=== PATIENT | female | born 1950 | race Caucasian/White ===

== ENCOUNTER 2019-06-19 20:22 | Inpatient (IN) | payer MEDICARE, SELFPAY ==
--- NOTE | ~2019-06-19 | XR_ITS ---
EXAMINATION: XR abdomen/kub 1V DATE: 06/22/2019 05:58 INDICATION: Small bowel obstruction TECHNIQUE: A supine view of the abdomen was obtained. COMPARISON: 06/21/2019 FINDINGS: Nasogastric tube coiled in the stomach. Multiple persistent dilated loops of gas-filled small bowel t hroughout the abdomen consistent with persistent bowel obstruction. Small amount of gas and stool sca ttered throughout the colon. Calcified nodule at the right lung base consistent with old granulomatou s disease. Mild lumbar dextroscoliosis with severe spondylosis. IMPRESSION: 1. Persistent small bowel obstruction. Reviewed, dictated and finalized at location A. LOFT WORKER
--- NOTE | ~2019-06-19 | XR_ITS ---
EXAMINATION: XR chest 1V portable INDICATION: Assess PICC position TECHNIQUE: Portable AP chest at 1829 hours COMPARISON: 02/17/2019 FINDINGS: A right upper extremity PICC ends with its tip at the superior cavoatrial junction. A nasog astric tube is in the stomach. The lungs are free of acute opacities. There is no pleural effusion or pneumothorax. The cardiomediastinal silhouette is normal. IMPRESSION: 1. Right upper extremity PICC ending with its tip at the superior cavoatrial junction. Reviewed, dictated and finalized at location A. LINE SUPERINTENDENT IMPRESSION: 1. Right upper extremity PICC ending with its tip at the superior cavoatrial ju nction.
--- NOTE | ~2019-06-19 | XR_ITS ---
EXAMINATION: XR abdomen NG/feed tube rechec DATE: 06/21/2019 13:43 INDICATION: Nasogastric tube repositioning TECHNIQUE: A supine view of the abdomen and lower chest was obtained for evaluation of feeding tube placement. COMPARISON: 06/21/2019 at 8:02 AM FINDINGS: Nasogastric tube has been advanced, now coiled in the body of the stomach. Right upper extremity milo pherally inserted central venous catheter (PICC) tip at the caudal superior vena cava. Persistent di lated loops of small bowel in the abdomen consistent with small bowel obstruction. Calcified nodule a t the right lung base consistent with old granulomatous disease. No pleural effusion or pneumothorax. Cardiomediastinal silhouette is normal. Lumbar dextrorotoscoliosis with moderate spondylosis. IMPRESSION: 1. Nasogastric tube in the stomach. 2. Small bowel obstruction. Reviewed, dictated and finalized at location A. INSTRUCTOR
--- NOTE | ~2019-06-19 | XR_ITS ---
XR abdomen/kub 1V DATE: 06/21/2019 08:05 INDICATION: Constipation. No vomiting. TECHNIQUE: Portable supine AP view on 06/21/2019 at 0802 hours COMPARISON: 06/20/2019 CT abdomen pelvis FINDINGS: There is abnormal gaseous distention of numerous small bowel loops, measuring almost 5 cm m aximal diameter, consistent with distal small bowel obstruction. There is a prominent amount of fecal material in the cecum and ascending colon. No visceromegaly is evident. The psoas shadows are intact. The tip of an NG tube is identified at the very upper margin of the radiograph, apparently within the stomach. There is rotatory dextroscoliosis and degenerative change of the lower thoracic and lumbar spine. IMPRESSION: Distal small bowel obstruction Reviewed, dictated and finalized at Location A. Reviewed, dictated and finalized at location B. CAL ASSISTANT SECRETARY
--- NOTE | ~2019-06-19 | XR_ITS ---
EXAMINATION: XR abdomen/kub 1V DATE: 06/23/2019 06:06 INDICATION: Small bowel obstruction. TECHNIQUE: A supine view of the abdomen on 2 radiographs was obtained. COMPARISON: Abdomen radiographs 06/22/2019, CT abdomen and pelvis 06/20/2019 FINDINGS: There are multiple dilated loops of small bowel. The colon is decompressed. The nasogastric tube tip is in the stomach. There is oral contrast in the stomach. IMPRESSION: 1. Persistently dilated small bowel, consistent with small bowel obstruction. Reviewed, dictated and finalized at location A. CULTURAL ENGINEERING TECHNICIAN
--- NOTE | ~2019-06-19 | CT_ITS ---
EXAMINATION: CT abdomen pelvis w con DATE: 06/20/2019 12:56 INDICATION: Small bowel obstruction. TECHNIQUE: Computed tomography (CT) of the abdomen and pelvis was performed with 100 mL Omnipaque-350 intravenous contrast. Automated exposure control and iterative reconstruction technique were employe d. The dose-length product was 330.14 mGy-cm. COMPARISON: 03/07/2019 FINDINGS: Dependent atelectasis in the left lower lobe and mild discoid atelectasis in the right lower lobe. Ca lcified right lower lobe nodule consistent with old granulomatous disease. Heart size is normal. No p ericardial or pleural effusion. Nasogastric tube coiled in the stomach with distal tip at the fundus. Focal hepatic steatosis at the ligamentum teres. Multiple subcentimeter fluid attenuation hepatic cy sts. Larger, low but slightly higher attenuation and more ill-defined 1.3 cm lesion in segment IVb of the liver with associated more peripheral mild biliary ductal dilation. Layering sludge in the depen dent aspect of mildly distended but otherwise normal-appearing gallbladder which measures up to 4.0 c m in maximal diameter. Spleen, pancreas, bilateral adrenal glands and kidneys are normal. Multiple dilated loops of small bowel with transition point at the terminal ileum which may be relate d to stricture resulting from prior inflammatory change associated with an earlier ruptured acute july endicitis. There is mild wall thickening along the proximal 10 cm segment of decompressed terminal il eum. There is a serpiginous loculated fluid collection measuring approximately 3.8 cm in length and u p to 1.3 cm in maximal diameter position along the posterior margin of the decompressed segment of te rminal ileum. There is an additional separate 1.6 x 1.4 cm rim-enhancing likely fluid collection slig htly more posterior and cephalad positioned posterior to the transition point. There are a few divert icula along the sigmoid colon without focal adjacent from trace stranding to suggest diverticulitis. Diffuse wall thickening of the decompressed bladder to at least in part to decompressed state althoug h the wall thickening appears more prominent cephalad suggesting secondary inflammation related to th e adjacent abscess. The inflammation also abuts the atrophic anteverted uterus. Bilateral adnexa are unremarkable. Mesenteric edema and trace amount of free ascites in the pelvis. No free intraperitonea l gas. Moderate lumbar spondylosis with chronic L5 superior endplate compression fracture. Small angy ons of subcutaneous gas and a few small subcutaneous nodules along the anterior pelvic wall likely si jeremy of subcutaneous injections. There is an indeterminate 1.5 cm soft tissue density nodule with poor ly defined margins position in the left paracolic gutter. No pathologically enlarged abdominal or pel vanesa lymphadenopathy. IMPRESSION: 1. Small bowel obstruction with transition 0.10 cm from the ileocecal valve with mild wall thickening and decompression of the terminal ileum. This could be related to stricture related to prior adjacen t perforated appendicitis. 2. Likely recurrent small abscesses in the right lower quadrant/pelvis measuring 3.8 x 1.3 cm and 1.6 x 1.4 cm. The poor candidates for percutaneous drainage given the small size and location a 3. Indeterminate 1.4 cm poorly defined hypoenhancing lesion with mild more peripheral biliary ductal dilation in segment 4A of liver. Differential includes phlegmon, malignancy (either primary or metast atic) and hemangioma. 4. New indeterminate 1.5 cm soft tissue density nodule with poorly defined margins in the left paraco lic gutter. This similarly could be inflammatory or metastatic in etiology. Reviewed, dictated and finalized at location A. AR TACKER IMPRESSION: 1. Small bowel o
--- NOTE | ~2019-06-19 | XR_ITS ---
EXAMINATION: XR abdomen/kub 1V INDICATION: Nasogastric tube placement TECHNIQUE: Supine view of the abdomen is obtained. COMPARISON: None FINDINGS: The nasogastric tube is in the stomach. The lung bases are clear. Small bowel loops of the upper abdomen are upper limits of normal in caliber. IMPRESSION: 1. Nasogastric tube in the stomach. Reviewed, dictated and finalized at location A. UE TECHNOLOGIST
--- NOTE | ~2019-06-19 | US_ITS ---
EXAMINATION: US venous doppler UE DATE: 06/20/2019 11:19 INDICATION: Follow-up relatively recent left upper extremity venous thrombosis in the left upper limb TECHNIQUE: Grayscale images without and with compression and Doppler images of the left upper extremi ty veins were obtained. COMPARISON: 04/06/2019 FINDINGS: No interval change in noncompressible thrombus in the proximal portion of one of the paired left basi lic veins. The second left basilic vein along with the left internal jugular vein, subclavian vein, a xillary vein, brachial vein, cephalic vein, radial vein, and ulnar vein are patent. IMPRESSION: 1. 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 Reviewed, dictated and finalized at location A. RWRITING CONSULTANT
--- NOTE | ~2019-06-19 | XR_ITS ---
EXAMINATION: XR UGI water soluble w sbs EXAM DATE: 06/22/2019 13:39 INDICATION: Small bowel obstruction. TECHNIQUE: Boiler Maker radiograph was acquired. Limited single contrast water-soluble upper GI examination was performed followed by small bowel series with Omnipaque water solution. Spot images of the termi nal ileum were acquired. The DAP for this procedure was 4.3 Gycm2. FINDINGS: There is no esophageal stricture, diverticulum or mass identified. Gastroesophageal juncti on is normal in appearance. Reflux was demonstrated on the exam, which is common in patients who have nasogastric tube in place. The stomach has a normal appearance without evidence of mass lesion, ulceration or filling defect. T here is normal rugal fold pattern. The duodenum and duodenal sweep are normal in appearance. Severely distended loops of mid small bowel are evident. The 30 minute image demonstrates small amoun t of contrast within normal calibered jejunum. The 1.5 hour image demonstrates slightly more contrast within same loops. 3 hour image demonstrates opacification of same jejunal loops, but with progressi on of contrast which now is visible within several loops of moderately distended small bowel. 5 hour image demonstrates more contrast within these loops and several other loops of small bowel which are severely dilated. Examination was terminated at this time as per ordering surgeon Dr. Winn. IMPRESSION: Small bowel obstruction. Reviewed, dictated and finalized at location A. ECTOR WEIGHTS AND MEASURES IMPRESSION: Small bowel obstruction.
[2019-06-19 18:00] VITALS: BP 104/68; PULSE 84; RESP 18; TEMP 36.8; O2SAT 94; BMI 25.1
--- NOTE | 2019-06-19 18:00 | PC.NURSE ---
This patient, Chichi Omer, was admitted to [facility] Surg Room 311-01. Patient/family oriented to hospital policies and general routines including ID bracelet, bed and alarms, visiting hours, pain management, procedures, bathroom and other care routines, personal items, smoking policy, room service/diet, and visiting hours. Valuables list has been completed. Information on how to activate the Rapid Response Team has been discussed. Patient/Family are encouraged to report perceived risks to care and to ask questions if they do not understand what they are told or what they should do. Pt has Right PICC and left nare NG tube.
[2019-06-19 19:18] LABS: Hematocrit 40.9 % (37.0-47.0); Hemoglobin 13.5 g/dL (12.0-15.0); Mean Corpuscular Volume 90.9 fl (80-100); Mean Platelet Volume 9.9 fl (7.4-10.4); Platelet Count Result 209 k/mm3 (150-375); Red Cell Distribution Width 12.9 % (11.5-14.5)
[2019-06-19 19:30] LABS: Blood Urea Nitrogen 41 mg/dL (7-17); Calcium 8.5 mg/dL (8.4-10.2); Carbon Dioxide 31 mmol/L (22-30); Chloride 91 mmol/L (98-107); Estimated CRCL calculation 59 ml/min; Estimated Glomerular Filt Rate > 60; Glucose 109 mg/dL (65-105); Potassium 4.2 mmol/L (3.4-5.0); Sodium 132 mmol/L (137-145)
--- NOTE | 2019-06-19 20:42 | PM.IMHP ---
H&P: HPI History of Present Illness Chief complaint: small bowel obstruction Narrative: Chichi Omer is a 69 year old female who was a direct admit from [facility]. The patient initially went to [facility] on 06/13/2019. She had been experiencing symptoms of abdominal discomfort and nausea for about 1 week prior to going to [facility]. She has had a Zaiz small-bowel obstruction approximately 4 and half years ago when she had a colon abscess. The patient had been a experiencing some lower abdominal discomfort across her lower abdomen. The pain was increasing so she decided to go to the emergency room for further evaluation. The patient had a colon abscess about 4 and half years ago which resulted in a small bowel obstruction in a required laparoscopic drainage of that: Abscess. Patient also had a ruptured appendix back in 2019 that had abscessed and she had that abscess drained per surgery. Conservative measures were attempted. Her repeat KUB suggested that her small-bowel obstruction was getting better so the NG tube was removed. However yesterday she had increased pain after eating and she had a repeat KUB in it shows that the small-bowel obstruction was getting worse. So the NG tube was placed back in the left ear. Patient is on TPN and has a PICC line. The surgical team had been on boarded [facility] however they feel that patient has failed conservative measures. They feel that she needed to be moved to a higher level of care. Dr. lim the surgeon here at [facility] agrees to accept the patient. Patient was transferred here to [facility] with NG tube and TPN. Patient did have magnesium replacement today for 1.6 magnesium. Patient has been requiring some pain medication for severe pain. She has been using Dilaudid and that seems to control her discomfort. Date of service 06/19/2019 Review of Systems Review of Systems: Narrative: Patient is complaining of having a sore throat from the NG tube however she stated that the Chloraseptic spray did not help her at all. She has minimal discomfort to the lower abdomen. It is nontender. She has been passing gas today. All systems reviewed & are unremarkable except as noted in HPI and below Constitutional: Constitutional: Reports as per HPI, Reports no additional constitutional complaints, Reports fatigue and Reports lethargy Comments: She currently has a DVT to left upper extremity from a PICC line from February and has been on Eliquis but since she has been NPO she has been on Lovenox. Eyes: Eyes: Reports as per HPI and Reports no additional eye complaints ENT: Reports system reviewed and no additional complaints, except as documented and Reports Normal hearing present Cardiovascular: Cardiovascular: Reports no additional cardiovascular complaints Respiratory: Respiratory: Reports no additional respiratory complaints and Reports no additional respiratory complaints Gastrointestinal: Gastrointestinal: Reports as per HPI and Reports no additional gastrointestinal complaints Musculoskeletal: Musculoskeletal: Reports no additional musculoskeletal complaints Integumentary/Breasts: Skin/Breast: Reports system reviewed and no additional complaints, except as docu and Reports as per HPI Neurologic: Reports system reviewed and no additional complaints, except as documented, Reports as per HPI and Reports Normal hearing present Psychiatric: Psychiatric: Reports no additional psychiatric complaints and Reports as per HPI Endocrine: Endocrine: Reports no additional endocrine complaints Hematologic/Lymphatic: Hematologic/Lymphatic: Reports no additional hematologic/lymphatic complaints Allergic/Immunologic: Allergic/Immunologic: Reports no additional allergic/immunologic complaints [facility] Past Medical History Medical History (Updated 06/19/19 @ 21:04 by Batsheva Benitez NP) Cervical cancer Post radiation and chemo. Deep vein thrombosis (DVT
[2019-06-19] MEDS: HYDROMORPHONE HCL 1 MG/ML INJ 0.5 MG IV PUSH ×2 (20:48→23:41)
[2019-06-19] MEDS: ENOXAPARIN 60 MG/0.6 ML SYRINGE SUB-Q (21:40)
[2019-06-19 21:59] LABS: Basophils Percent Auto 0.2 % (0.2-1.2); Eosinophils Absolute Auto 0.1 K/mm3 (0-0.3); Eosinophils Percent Auto 1.1 % (0-4.4); Hematocrit 39.5 % (37.0-47.0); Immature Granulocyte Absolute 0.01 K/mm3 (0.00-0.031); Immature Granulocyte Percent A 0.2 % (0-0.5); Lymphocytes Absolute Auto 0.66 K/mm3 (0.9-3.2); Lymphocytes Percent Auto 15.1 % (18.3-44.2); Mean Corpuscular HGB Conc 32.9 g/dl (32-36); Mean Corpuscular Hemoglobin 29.9 pg (26-34); Mean Corpuscular Volume 90.8 fl (80-100); Mean Platelet Volume 9.8 fl (7.4-10.4); Monocytes Absolute Auto 0.7 K/mm3 (0.1-0.6); Monocytes Percent Auto 16.2 % (2.6-8.5); Neutrophils Absolute Auto 2.9 K/mm3 (1.3-6.7); Neutrophils Percent Auto 67.2 % (45.5-73.1); Platelet Count Result 206 k/mm3 (150-375); Red Blood Count 4.35 M/mm3 (4.2-5.4); Red Cell Distribution Width 12.8 % (11.5-14.5); White Blood Count 4.4 K/mm3 (4.5-10.0)
[2019-06-19 22:00] VITALS: BP 108/44; PULSE 80; RESP 16; TEMP 37.1; O2SAT 94
[2019-06-19 22:11] LABS: Alanine Aminotransferase 13 U/L (4-35); Alkaline Phosphatase 88 U/L (38-126); Aspartate Amino Transferase 18 U/L (14-36); Bilirubin,Total 0.4 mg/dL (0.2-1.3); Blood Urea Nitrogen 41 mg/dL (7-17); Calcium 8.3 mg/dL (8.4-10.2); Carbon Dioxide 32 mmol/L (22-30); Chloride 92 mmol/L (98-107); Estimated CRCL calculation 52 ml/min; Estimated Glomerular Filt Rate > 60; Glucose 102 mg/dL (65-105); Magnesium 3.2 mg/dL (1.6-2.3); Potassium 4.3 mmol/L (3.4-5.0); Sodium 134 mmol/L (137-145)
[2019-06-19] MEDS: AMINO ACIDS 4.25%/D5W/LYTES/CA 2,000 ML 100 ML IV CONT (22:22)
[2019-06-19 22:29] LABS: Transferrin 161 mg/dL (206-381)
[2019-06-20 00:08] LABS: Glucose Point of Care 116 (65-105)
[2019-06-20] MEDS: HYDROMORPHONE HCL 1 MG/ML INJ 0.5 MG IV PUSH ×5 (03:31→21:33)
[2019-06-20 05:36] VITALS: BP 131/45; PULSE 71; RESP 20; TEMP 37; O2SAT 96
[2019-06-20 05:40] LABS: Basophils Percent Auto 0.3 % (0.2-1.2); Eosinophils Absolute Auto 0.1 K/mm3 (0-0.3); Eosinophils Percent Auto 1.6 % (0-4.4); Hemoglobin 12.2 g/dL (12.0-15.0); Immature Granulocyte Absolute 0.01 K/mm3 (0.00-0.031); Immature Granulocyte Percent A 0.3 % (0-0.5); Lymphocytes Absolute Auto 0.61 K/mm3 (0.9-3.2); Lymphocytes Percent Auto 16.4 % (18.3-44.2); Mean Corpuscular Hemoglobin 30.3 pg (26-34); Mean Corpuscular Volume 91.8 fl (80-100); Mean Platelet Volume 10.1 fl (7.4-10.4); Monocytes Absolute Auto 0.7 K/mm3 (0.1-0.6); Monocytes Percent Auto 17.7 % (2.6-8.5); Neutrophils Absolute Auto 2.4 K/mm3 (1.3-6.7); Neutrophils Percent Auto 63.7 % (45.5-73.1); Platelet Count Result 199 k/mm3 (150-375); Red Blood Count 4.03 M/mm3 (4.2-5.4); Red Cell Distribution Width 12.8 % (11.5-14.5); White Blood Count 3.7 K/mm3 (4.5-10.0)
[2019-06-20 05:51] LABS: Alanine Aminotransferase 12 U/L (4-35); Albumin Level 2.8 g/dL (3.5-5.1); Alkaline Phosphatase 87 U/L (38-126); Aspartate Amino Transferase 18 U/L (14-36); Bilirubin,Total 0.5 mg/dL (0.2-1.3); Blood Urea Nitrogen 41 mg/dL (7-17); Calcium 8.3 mg/dL (8.4-10.2); Carbon Dioxide 32 mmol/L (22-30); Chloride 90 mmol/L (98-107); Estimated CRCL calculation 52 ml/min; Estimated Glomerular Filt Rate > 60; Glucose 95 mg/dL (65-105); Magnesium 2.5 mg/dL (1.6-2.3); Phosphorus 4.8 mg/dL (2.5-4.5); Potassium 4.4 mmol/L (3.4-5.0); Sodium 132 mmol/L (137-145)
[2019-06-20 05:52] LABS: INR 1.1
[2019-06-20 05:58] LABS: Transferrin 154 mg/dL (206-381)
--- NOTE | 2019-06-20 09:15 | PM.CNGS ---
Assessment and Plan Assessment and plan (1) SBO (small bowel obstruction): Code(s): K56.609 - Unspecified intestinal obstruction, unspecified as to partial versus complete obstruction Status: Acute Assessment and Plan: The chart from [place] has been reviewed. The patient has evidence of a small bowel obstruction that has failed conservative treatment. I have taken the disc of her images at [place] to be uploaded to our system. We will then be able to review her previous scan. We have ordered a repeat CT scan of the abdomen and pelvis as well today that can then be compared. The patient is a high risk surgical candidate due to her history of pelvic radiation for treatment of cervical and possible uterine cancer. The patient reports that she had both uterine and cervical cancer. We have requested information from [facility] regarding her previous cancer and treatment. At this time, we will continue NG tube decompression, analgesics, bowel rest, and IV fluids. Continue Clinimix for nutrition while NPO. Further plan will be forthcoming after we have evaluated the results of the CT scan and depending on how the patient is progressing. If she does have evidence of a high-grade small bowel obstruction that is not responding to conservative measures, then she will require exploratory surgery. The treatment plan as mentioned above has been discussed with the patient and questions were answered. Thank you for allowing me to evaluate the patient in consultation and we will continue to follow along with you. (2) History of radiation therapy: Code(s): Z92.3 - Personal history of irradiation Status: Acute Assessment and Plan: Significantly increases her risk for surgery. 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 (3) Anticoagulant prescribed: Status: Acute Assessment and Plan: Eliquis held since 06/13/19. Currently on weight-based Lovenox Q12H. (4) HTN (hypertension) with goal to be determined: Code(s): I10 - Essential (primary) hypertension Status: Chronic (5) Deep vein thrombosis (DVT) of left upper extremity: Code(s): I82.622 - Acute embolism and thrombosis of deep veins of left upper extremity Status: Chronic (6) Magnesium deficiency: Code(s): E61.2 - Magnesium deficiency Status: Acute Additional Plan The patient's case and plan of care discussed with Dr. Winn today. History of Present Illness Consult details Consult date: 06/20/19 Reason for consult: other (Persistent small bowel obstruction) Requesting physician: Batsheva Benitez NP Narrative: This is a 69-year-old female with a history of cervical and reported uterine cancer in 2004 treated at [facility] with chemotherapy and pelvic radiation. In 2014 she had a colonoscopy that showed a rectosigmoid stricture with biopsies that showed inflammation and fibrosis but no malignancy. A CT scan was subsequently done and showed a pelvic abscess in August of 2014, and the patient ultimately underwent a diagnostic laparoscopy, drainage of pelvic abscess, and biopsy of abscess wall by Dr. Winn on September 15, 2014 along with laparoscopic adhesiolysis of pelvic cul-de-sac by Dr. Curtis. Abscess cultures showed no organism growth. She had no significant issues following this surgery, until the end of last year. The patient was admitted in February of 2019 to [facility] for an intra-abdominal abscess thought to be attributed to perforated acute appendicitis and partial small-bowel obstruction. The abscess was treated with antibiotics and CT-guided percutaneous drainage and the partial small-bowel obstruction resolved with conservative measures and treatment of the intra-abdominal infection. Since that admission, the patient has had no complaints until about 2 weeks ago. She reports noticing lower abdominal pain and pressure at home for about 1 week. She also cheek
[2019-06-20] MEDS: ENOXAPARIN 60 MG/0.6 ML SYRINGE SUB-Q ×2 (09:22→21:22)
--- NOTE | 2019-06-20 09:57 | PM.IMPN ---
Progress Note: A&P Assessment and Plan (1) SBO (small bowel obstruction): Code(s): K56.609 - Unspecified intestinal obstruction, unspecified as to partial versus complete obstruction Status: Acute Assessment and Plan: Patient feeling about the same from yesterday. Surgery following and appreciate recommendations. Continue with NGT with continuous suction. Will continue with pain medication with the Dilaudid and continue with TPN. Further recommendations per surgery. Will obtain records from Dr. Caban's office for previous Echo that was to assess systolic murmur (2) HTN (hypertension) with goal to be determined: Code(s): I10 - Essential (primary) hypertension Status: Chronic Assessment and Plan: Patient is NPO with NGT. BP 130s sys Hold amlodipine, chlorthalidone, metoprolol due to NPO status Continue PRN hydralazine with parameters Monitor (3) Magnesium deficiency: Code(s): E61.2 - Magnesium deficiency Status: Acute Assessment and Plan: Mag 2.5 today. Monitor, replace as needed (4) Deep vein thrombosis (DVT) of left upper extremity: Code(s): I82.622 - Acute embolism and thrombosis of deep veins of left upper extremity Status: Chronic Assessment and Plan: Thrombosis associated from PICC line from LUE in 02/2019. She was to have repeat US in july Repeat ultrasound of the left upper arm today. Patient had been on Eliquis for treatment, but switched to subcu Lovenox in the acute setting due to NPO status (5) Neuropathy associated with cancer: Code(s): C80.1 - Malignant (primary) neoplasm, unspecified; G63 - Polyneuropathy in diseases classified elsewhere Status: Chronic Assessment and Plan: No acute issues at the moment (6) Hyperlipidemia: Code(s): E78.5 - Hyperlipidemia, unspecified Status: Chronic Assessment and Plan: Hold atorvastatin while NPO Subjective Date/time seen: 06/20/19 09:57 Interval history: PAtient is a 69 yo F with a [place] of thrombosis due [place] [facility] [place] cancer, ruptured appendix among other comorbidities who is here for treatment of SBO. Patient states she feels the same; still having lower abdominal pain particularly with moving. She is passing flatus, but no BMs. She has no N/V since NGT was placed. Otherwise no complaints today. Denies f/c/ns, cp/palpitations, sob/cough, n/v, dysuria, hematuria, cloudy urine, calf pain/swelling. Review of Systems Review of Systems: All systems reviewed & are unremarkable except as noted in HPI and below Exam Narrative: Exam Narrative: Patient is lying in bed in semi-drew's position. NGT is placed in Left nostril to suction Const: General: cooperative, comfortable, no acute distress, well developed and alert Nutritional Appearance: well nourished Orientation/consciousness: patient oriented x3 HENMT: Head: normocephalic and atraumatic General nose exam: Normal nares present (NGT left nostril noted) Face and sinus: face symmetric Mouth: Yes lip normal, Yes tongue normal and Yes moist mucous membranes Teeth and gingiva: fair dentition Throat: posterior oropharynx normal and uvula midline Eyes: General: appearance normal, both eyes and all related structures Sclera: sclerae normal Pupils: Equal, round and reactive pupils present EOM: EOMs intact bilaterally Neck: Neck: trachea midline and supple Resp: Effort & Inspection: normal respiratory effort Auscultation: rhonchi right upper (cleared with cough) Cardio: Rate: regular rate Rhythm: regular rhythm Heart sounds: Murmur heart sound present systolic GI: Inspection: distended GI Palp: No abdominal tenderness and Yes Firmness to palpation p
[2019-06-20] MEDS: FAT EMULSIONS IV 20% 250 ML 20.8 ML IVPB (11:27)
[2019-06-20 11:58] LABS: Glucose Point of Care 85 (65-105)
[2019-06-20 13:45] VITALS: BMI 25.1
[2019-06-20 14:00] VITALS: BP 111/65; PULSE 73; RESP 18; TEMP 36.8; O2SAT 92
--- NOTE | 2019-06-20 14:44 | PCNSR ---
On 06/20/19, the student, Susie Murrell, provided care and completed [facility] documentation on this patient. I have reviewed the student's documentation and agree with the findings.
--- NOTE | 2019-06-20 16:46 | PM.PNGS ---
Progress Note: A&P Assessment and Plan (1) SBO (small bowel obstruction): Code(s): K56.609 - Unspecified intestinal obstruction, unspecified as to partial versus complete obstruction Status: Acute Assessment and Plan: despite the patient having already been treated for nearly a week, I would be very slow to proceed with surgery as her radiation injured bowel would prove to potentially be very hazardous to additional surgery. She is not septic or in severe pain at this time. We will go ahead and recover records from [facility] regarding her treatment of cervical and uterine cancer in 2004. Will continue NG suction and serial exams with plain films of the abdomen. She will continue on Clinimax TPN. I am still hopeful that this may resolve. (2) History of radiation therapy: Code(s): Z92.3 - Personal history of irradiation Status: Acute Assessment and Plan: Please see HPI. Patient has significantly injured rectum and small bowel from radiation therapy in 2004. (3) Pelvic abscess in female: Code(s): N73.9 - Female pelvic inflammatory disease, unspecified Status: Acute Assessment and Plan: Fluid collections described on CT scan. These may be purulent as they were in February or they may just be fluid collections as were found in 2014. Will treat with IV antibiotics for now. No fever chills or leukocytosis in [place] although she did have a low neutrophil count there initially. (4) Deep vein thrombosis (DVT) of left upper extremity: Code(s): I82.622 - Acute embolism and thrombosis of deep veins of left upper extremity Status: Chronic Assessment and Plan: Currently on therapeutic dose of Lovenox. Subjective Subjective Date/Time Seen: 06/20/19 06:46 abdominal pain comes and goes. Mostly in the lower abdomen. Not much change since admission in [place] on the . Review of records from [place] show however that she improved initially and her NG was clamped, she was started on a diet. Then, about 5 days later, she was having more problems and the NG was resume to suction. We were then notified that they wished to transfer her here yesterday afternoon. White blood cell count has not been elevated and was in fact low during most of the admission in [place]. No contrast studies were done although a CT scan of the abdomen and pelvis was done on the 13 of June, the admission day. Patient has a significant past history in that she had chemotherapy and radiation therapy at [facility] in 2004 for uterine and cervical cancer. No hysterectomy was done. In our records, in , Dr. Salinas did a colonoscopy. Rather this was an attempted colonoscopy as there was a tight stricture in the upper rectum that he was concerned was a malignancy at the time of the procedure. However, biopsies showed this to be only scar tissue (lamina propria fibrosis). Likely, this is sequellae of her radiation therapy. The patient had a CT scan of the abdomen and pelvis regarding this abnormal rectal mass 2 days after her colonoscopy. Findings described a pelvic abscess situated between the rectum in uterus thought to be due to perforated diverticuli or perforated tumor. Despite these rather ominous findings on CT, the patient was clinically quite stable with no signs of infection only some chronic pelvic discomfort. She was treated with oral antibiotics and her symptoms largely resolved. Her CT was repeated 2 weeks later and showed no change in the pelvic fluid collection. I was involved in her care at this time. It was felt to represent an apparently walled off anterior rectal abscess with perforation into the space between the rectum an uterus. Malignant rectal mass could not be excluded and diverticular abscess was suggested. The patient was taken to surgery and laparoscopic drainage of this pelvic fluid collection was performed. Dr. Curtis and I did the procedur
[2019-06-20] MEDS: AMINO ACIDS 4.25%/D5W/LYTES/CA 2,000 ML 100 ML IV CONT (17:54)
[2019-06-20 18:08] LABS: Glucose Point of Care 98 (65-105)
[2019-06-20 21:09] LABS: Triglycerides 165 mg/dL (<150)
[2019-06-20] MEDS: PANTOPRAZOLE SODIUM IV 40 MG VIAL IV PUSH (21:22)
[2019-06-20 22:00] VITALS: BP 108/52; PULSE 84; RESP 16; TEMP 36.8; O2SAT 98
[2019-06-20 23:30] LABS: Glucose Point of Care 92 (65-105)
[2019-06-21] MEDS: HYDROMORPHONE HCL 1 MG/ML INJ 0.5 MG IV PUSH ×6 (02:08→21:48)
[2019-06-21 05:20] LABS: Glucose Point of Care 100 (65-105)
[2019-06-21 05:22] LABS: Basophils Percent Auto 0.3 % (0.2-1.2); Eosinophils Percent Auto 1.1 % (0-4.4); Hematocrit 37.1 % (37.0-47.0); Hemoglobin 12.3 g/dL (12.0-15.0); Immature Granulocyte Absolute 0.02 K/mm3 (0.00-0.031); Immature Granulocyte Percent A 0.5 % (0-0.5); Lymphocytes Absolute Auto 0.64 K/mm3 (0.9-3.2); Lymphocytes Percent Auto 17.3 % (18.3-44.2); Mean Corpuscular HGB Conc 33.2 g/dl (32-36); Mean Corpuscular Hemoglobin 30.1 pg (26-34); Mean Corpuscular Volume 90.9 fl (80-100); Mean Platelet Volume 9.9 fl (7.4-10.4); Monocytes Absolute Auto 0.7 K/mm3 (0.1-0.6); Monocytes Percent Auto 17.8 % (2.6-8.5); Neutrophils Absolute Auto 2.3 K/mm3 (1.3-6.7); Platelet Count Result 204 k/mm3 (150-375); Red Blood Count 4.08 M/mm3 (4.2-5.4); Red Cell Distribution Width 12.8 % (11.5-14.5); White Blood Count 3.7 K/mm3 (4.5-10.0)
[2019-06-21 05:51] LABS: Blood Urea Nitrogen 38 mg/dL (7-17); Calcium 8.5 mg/dL (8.4-10.2); Carbon Dioxide 31 mmol/L (22-30); Chloride 91 mmol/L (98-107); Estimated CRCL calculation 46 ml/min; Estimated Glomerular Filt Rate > 60; Glucose 109 mg/dL (65-105); Magnesium 1.9 mg/dL (1.6-2.3); Phosphorus 4.8 mg/dL (2.5-4.5); Potassium 4.4 mmol/L (3.4-5.0); Sodium 130 mmol/L (137-145)
[2019-06-21 06:00] VITALS: BP 116/60; PULSE 72; RESP 16; TEMP 36.4; O2SAT 92
[2019-06-21] MEDS: PANTOPRAZOLE SODIUM IV 40 MG VIAL IV PUSH ×2 (08:15→21:48)
[2019-06-21] MEDS: ENOXAPARIN 60 MG/0.6 ML SYRINGE SUB-Q ×2 (08:16→21:48)
--- NOTE | 2019-06-21 09:07 | PM.PNGS ---
Progress Note: A&P Assessment and Plan (1) SBO (small bowel obstruction): Code(s): K56.609 - Unspecified intestinal obstruction, unspecified as to partial versus complete obstruction Status: Acute Assessment and Plan: CT scan and x-ray this morning reviewed and show persistent small-bowel obstruction, although she has now had 2 bowel movements. She seems to be clinically improving some. As previously mentioned, with her history of significant pelvic radiation, she is at a very high risk for additional abdominal surgery. We will continue NG tube decompression, bowel rest, and analgesics today. Repeat KUB in the morning. May consider Gastrografin small-bowel follow-through in the next 1-2 days. Continue Clinimix for nutrition. (2) History of radiation therapy: Code(s): Z92.3 - Personal history of irradiation Status: Acute Assessment and Plan: Patient has significantly injured rectum and small bowel from radiation therapy in 2004. We did receive the records from [place] regarding the patient's previous cancer treatment. It appears she was diagnosed with stage IIB cervical carcinoma. 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 She underwent both chemotherapy and radiation treatment. Last follow-up note received from [place] was in 2007 and showed a PET scan reviewed by the Oncologist with no evidence of local recurrent or metastatic disease with recommendation of follow-up in 1 year for repeat whole body PET/CT scan. (3) Pelvic abscess in female: Code(s): N73.9 - Female pelvic inflammatory disease, unspecified Status: Acute Assessment and Plan: Fluid collections described on CT scan that are not amenable for percutaneous drainage. These may be purulent as they were in February or they may just be fluid collections as were found in 2014. She is afebrile and without leukocytosis. Will continue IV antibiotics. (4) Hyponatremia: Code(s): E87.1 - Hypo-osmolality and hyponatremia Status: Acute Assessment and Plan: Sodium 130 today. The only IV fluids running is her Clinimix 4.25%/5 solution at 100 mL/hr and lipids. I asked the Campaign Associate to give recommendations for the central line solution of Clinimix to reduce the mL/hr rate with the same daily caloric intake. We will then be able to add additional sodium containing fluids without fluid overloading her. Discussed also with the Hospitalist who will order a urine sodium. Continue to trend labs. (5) Deep vein thrombosis (DVT) of left upper extremity: Code(s): I82.622 - Acute embolism and thrombosis of deep veins of left upper extremity Status: Chronic Assessment and Plan: Currently on therapeutic dose of Lovenox. Additional Plan The patient's case and plan of care discussed with Dr. Winn today. Subjective Subjective Date/Time Seen: 06/21/19 09:00 Patient reports: no new complaints, feels better, still having pain, flatus and no bowel movement Interval history: Patient seen and examined. Reports having intermittent lower abdominal pain with certain movements, but denies this being a constant pain. Still feels bloated today. Denies nausea. Reports having a bowel movement last night and again this morning. No other complaints at this time. Review of Systems Review of Systems: All systems reviewed & are unremarkable except as noted in HPI and below Exam Const: General: comfortable, no acute distress, alert and awake GI: Inspection: other ( Only mild distension) GI Palp: No abdominal tenderness, Yes Firmness to palpation present (GI) (Mostly in the lower abdomen), No Guarding due to palpation present (GI), No Hernia present and No Rebound tenderness present Auscultation: Hypoactive bowel sounds present Rectal Exam: deferred Extrem: General: normal to inspection Psych: Mental Status: mental status grossly normal Affect: normal affect
[2019-06-21] MEDS: ONDANSETRON INJ 4 MG/2 ML VIAL IV PUSH (11:18)
--- NOTE | 2019-06-21 11:19 | PCDIET ---
Recommend for PN formula Clinimix E 5/15 at goal rate 60ml/hr Q24 and 250ml of 20% lipid emulsions at 20.833mls/hr Q24. Providing 1522kcals and 72g pro with 24hr volume of 1690.
[2019-06-21] MEDS: FAT EMULSIONS IV 20% 250 ML 20.8 ML IVPB (12:45)
[2019-06-21 13:32] LABS: Sodium Urine Random 34 meq/L
[2019-06-21] MEDS: SODIUM CHLORIDE 0.9% IV 1,000 ML 50 ML IV CONT (13:35)
[2019-06-21 13:51] LABS: Glucose Point of Care 135 (65-105)
[2019-06-21 14:00] VITALS: BP 111/76; PULSE 84; RESP 18; TEMP 36.3; O2SAT 95
--- NOTE | 2019-06-21 15:01 | PCDIET ---
Nutrition Follow-Up Complete: Altered GI function related to small bowel obstruction as evidence by present abdominal pain and nausea. Toleration of TPN formula and reach goal rate. Goal met. Noted that formula and rate changed 06/21 Nutrition recommendation: NPO with PN appropriate. Clinimix E 5/15 at 60mls/hr Q24 with 250mls 20%lipid emulsion at 20.833ml/hr q24, providing 1522kcals and 72g pro. Recommend continuation until medically appropriate for diet advancement. Last recorded weight is 63.5 kg. Bowel Motility: +BM 06/21 Labs Reviewed:Na(130), K(4.4), Glu(109), TGs(165.38), PO4(4.8) Meds Noted: protonix, lovenox, zofran Additional Notes: Pt states abdominal pain is present but has not worsened. [place] slightly nauseous today but it only lasted for a short period of time. Will continue to monitor labs. Follow up T/F
--- NOTE | 2019-06-21 15:14 | PCNSR ---
On 06/21/19, the student, Suise Murrell, provided care and completed [facility] documentation on this patient. I have reviewed the student's documentation and agree with the findings.
[2019-06-21 18:17] LABS: Glucose Point of Care 114 (65-105)
--- NOTE | 2019-06-21 19:34 | PM.IMPN ---
Progress Note: A&P Assessment and Plan (1) SBO (small bowel obstruction): Code(s): K56.609 - Unspecified intestinal obstruction, unspecified as to partial versus complete obstruction Status: Acute Assessment and Plan: ------Patient feeling about the same from yesterday and has had gas and a very small amount of stool. Xray still showing bowel obstruction.. Surgery following and appreciate recommendations. She is on TPN and fluids were added today d/t hyponatremia. Dr. Caban does not have records of echo, she says her pcp nupur burns ordered it and reports no significant abnormalities or symptoms of . (2) HTN (hypertension) with goal to be determined: Code(s): I10 - Essential (primary) hypertension Status: Chronic Assessment and Plan: -----Patient is NPO with NGT. Last bp 111/76. Hold amlodipine, chlorthalidone, metoprolol due to NPO status. Continue PRN hydralazine with parameters (3) Magnesium deficiency: Code(s): E61.2 - Magnesium deficiency Status: Acute Assessment and Plan: -----Improved (4) Deep vein thrombosis (DVT) of left upper extremity: Code(s): I82.622 - Acute embolism and thrombosis of deep veins of left upper extremity Status: Chronic Assessment and Plan: ------Thrombosis associated from PICC line from LUE in 02/2019. She was to have repeat US in july. Repeat ultrasound of the left upper arm today. 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 imaging worrisome for reoccurrence. Will need follow up with oncologist. I will talk to her tomorrow about more specifics. (6) Hyperlipidemia: Code(s): E78.5 - Hyperlipidemia, unspecified Status: Chronic Assessment and Plan: -------Hold atorvastatin while NPO Subjective Date/time seen: 06/21/19 19:34 Interval history: Pt is a 69 yo here for SBO w/ a history of thrombosis due to PICC line, and cervical cancer. The patients states she has passed some gas and had a very small smear bowel movement and is feeling better. She occasionally gets nausea and pain to the lower quadrants but no vomiting. She had to get her NG tube adjusted which has made this all worse. She denies CP, SOB, fevers, chills, or leg swelling. Pt states she had an echo last year with her doctor, Nupur burns in [place] because of the murmur that was found and she was told it wasn't an issues and they will monitor her. . Exam Narrative: Exam Narrative: General: Well developed well nourished patient resting in bed in NAD HEENT: normocephalic, NG intact Neck: supple Neuro: Alert and oriented x 4 CV:RRR with 2/6 systolic murmur best heard on the right ICS Resp:CTA, some occasional expiratory wheeze Abd: Soft, non distended. Some mild pain to the lower abdomen. Positive bowel sounds Extremities: No swelling, erythema, or pain to palpation. Objective Data Vital Signs Vital Signs: Vital Signs - 24 hr 06/20/19 22:00 06/21/19 06:00 06/21/19 14:00 Temperature 98.2 F 97.5 F L 97.3 F L Pulse Rate 84 72 84 Respiratory Rate 16 16 18 Blood Pressure 108/52 L 116/60 111/76 Pulse Oximetry 98 92 95 Intake/Output Intake/Output: Intake & Output 06/18/19 06/19/19 06/20/19 06/21/19 23:59 23:59 23:59 23:59 Intake Total 2250 2611 Output Total 1450 1850 Balance 800 761 Meds/Results Medications: Active Medications Generic Name Dose Route Start Last Admin Trade Name Freq PRN Reason Stop Dose Admin Enoxaparin Sodium 60 mg 06/20/19 09:00 06/21/19 08:16 Lovenox SUB-Q 60 mg Q12HR SARAH Administration Hydralazine HCl 10 mg 06/19/19 20:25
[2019-06-21 22:00] VITALS: BP 120/56; PULSE 85; RESP 16; TEMP 37; O2SAT 95
[2019-06-22] MEDS: LIDOCAINE/PRILOCAINE 2.5-2.5% KIT 1 EACH TOPICAL ×3 (00:06→21:07)
[2019-06-22] MEDS: HYDROMORPHONE HCL 1 MG/ML INJ 0.5 MG IV PUSH ×7 (00:08→22:55)
[2019-06-22 00:15] LABS: Glucose Point of Care 147 (65-105)
[2019-06-22 05:23] LABS: Glucose Point of Care 111 (65-105)
[2019-06-22 05:23] LABS: Glucose Point of Care > 500 (65-105)
[2019-06-22 06:00] VITALS: BP 100/57; PULSE 89; RESP 16; TEMP 36.6; O2SAT 94
--- NOTE | 2019-06-22 07:26 | PM.PNGS ---
Progress Note: A&P Assessment and Plan (1) SBO (small bowel obstruction): Code(s): K56.609 - Unspecified intestinal obstruction, unspecified as to partial versus complete obstruction Status: Acute Assessment and Plan: making a little bit of progress each day. Will get Gastrografin upper GI small-bowel follow-through. Even if it does not pass through, it may work to facilitate resolution of the small-bowel obstruction as the patient is extremely high risk surgically. (2) History of radiation therapy: Code(s): Z92.3 - Personal history of irradiation Status: Acute Assessment and Plan: Rectal stricture and previous small-bowel fibrosis, abscesses. (3) Deep vein thrombosis (DVT) of left upper extremity: Code(s): I82.622 - Acute embolism and thrombosis of deep veins of left upper extremity Status: Chronic Assessment and Plan: On Lovenox therapeutic dose. (4) Hyponatremia: Code(s): E87.1 - Hypo-osmolality and hyponatremia Status: Acute Assessment and Plan: Clinimix changed to central formulation. No electrolytes have been done as yet today. Subjective Subjective Date/Time Seen: 06/22/19 07:26 Abdominal and pelvic pain seems to be less intense and less frequent. Slept better last night. Passing gas but no BM since yesterday. Overall feels better. Review of Systems Review of Systems: All systems reviewed & are unremarkable except as noted in HPI and below Constitutional: Constitutional: Denies headache(s) ENT: Denies headache(s) Cardiovascular: Cardiovascular: Denies chest pain and Denies dyspnea Respiratory: Respiratory: Denies cough and Denies dyspnea Gastrointestinal: Gastrointestinal: Reports as per HPI Neurologic: Denies confusion and Denies headache(s) Psychiatric: Psychiatric: Denies confusion Exam Const: General: comfortable and no acute distress; No confusion Orientation/consciousness: patient oriented x3 and No confusion Resp: Effort & Inspection: normal respiratory effort Auscultation: clear to auscultation bilaterally Cardio: Rate: regular rate Rhythm: regular rhythm GI: Inspection: normal to inspection and non-distended GI Palp: Yes Soft to palpation, No Guarding due to palpation present (GI) and No Rebound tenderness present Auscultation: normal bowel sounds Neuro: General: patient oriented x3, no focal motor deficits and No confusion Extrem: General: no calf tenderness and no edema Psych: Affect: normal affect Insight: Good insight present (Psych) Judgement: Good judgement present (Psych) Objective Data Vital Signs Vital Signs: Vital Signs - 24 hr 06/21/19 14:00 06/21/19 22:00 Temperature 36.3 C L 37.0 C Pulse Rate 84 85 Respiratory Rate 18 16 Blood Pressure 111/76 120/56 L Pulse Oximetry 95 95 Intake/Output Intake/Output: Intake & Output 06/19/19 06/20/19 06/21/19 06/22/19 23:59 23:59 23:59 23:59 Intake Total 2250 2611 1530 Output Total 1450 1850 300 Balance 860 172 4434 Meds/Results Medications: Active Medications Generic Name Dose Route Start Last Admin Trade Name Freq PRN Reason Stop Dose Admin Enoxaparin Sodium 60 mg 06/20/19 09:00 06/21/19 21:48 Lovenox SUB-Q 60 mg Q12HR SARAH Administration Hydralazine HCl 10 mg 06/19/19 20:25 Apresoline Hcl Inj IV PUSH Q8H PRN Blood Pressure - High Hydromorphone HCl 0.5 mg 06/19/19 20:41 06/22/19 04:41 Dilaudid Inj IV PUSH 0.5 mg Q3H PRN Administration Pain Rated 7-10 Dextrose 1,000 mls @ 50 mls/hr 06/19/19 20:40 Dextrose 10% IV CONT .Q20H PRN if PN is interrupted Fat Emulsion Intravenous 250 mls @ 20.833 mls/hr 06/20/19 12:00 06/22/19 01:14 Lipids 20% IVPB Infused Q24H SARAH Infusion Piperacillin/Tazobactam/Dextrose 3.375 gm in 50 mls @ 100 mls/hr 06/21/19 07:00 06/22/19 05:40 Zosyn 3.375 Gm/D5w 50ml Pm IVPB Infused Q6HR SARAH Infusion Multivitamin
[2019-06-22] MEDS: ONDANSETRON INJ 4 MG/2 ML VIAL IV PUSH ×2 (09:33→16:24)
[2019-06-22 09:37] VITALS: BP 108/65; PULSE 82; RESP 14; TEMP 37; O2SAT 93
[2019-06-22] MEDS: ENOXAPARIN 60 MG/0.6 ML SYRINGE SUB-Q ×2 (09:52→21:08)
[2019-06-22] MEDS: PANTOPRAZOLE SODIUM IV 40 MG VIAL IV PUSH ×2 (10:06→21:09)
[2019-06-22 10:24] LABS: Blood Urea Nitrogen 34 mg/dL (7-17); Calcium 8.6 mg/dL (8.4-10.2); Carbon Dioxide 31 mmol/L (22-30); Chloride 91 mmol/L (98-107); Estimated CRCL calculation 41 ml/min; Estimated Glomerular Filt Rate > 60; Glucose 112 mg/dL (65-105); Phosphorus 4.3 mg/dL (2.5-4.5); Potassium 4.1 mmol/L (3.4-5.0); Sodium 134 mmol/L (137-145)
[2019-06-22] MEDS: SODIUM CHLORIDE 0.9% IV 1,000 ML 50 ML IV CONT (11:02)
[2019-06-22] MEDS: FAT EMULSIONS IV 20% 250 ML 20.8 ML IVPB (11:48)
[2019-06-22 11:51] LABS: Glucose Point of Care 103 (65-105)
[2019-06-22 14:07] VITALS: BP 117/59; PULSE 87; RESP 12; TEMP 37; O2SAT 93
--- NOTE | 2019-06-22 14:27 | PC.NURSE ---
On 06/22/19, the student, [Мария Johansen ], provided care and completed [facility] documentation on this patient. I have reviewed the student's documentation and agree with the findings.
--- NOTE | 2019-06-22 16:27 | PM.IMPN ---
Progress Note: A&P Assessment and Plan (1) SBO (small bowel obstruction): Code(s): K56.609 - Unspecified intestinal obstruction, unspecified as to partial versus complete obstruction Status: Acute Assessment and Plan: ------Patient feeling about the same as she has been and has been passing gas. Xray still showing bowel obstruction. I spoke with Dr. lim who may see if she could be transferred to a tertiary care center since she will be a high risk surgery. Hyponatremia has resolved. Dr. Caban does not have records of echo, she says her pcp nupur burns ordered it and reports no significant abnormalities or symptoms of . (2) HTN (hypertension) with goal to be determined: Code(s): I10 - Essential (primary) hypertension Status: Chronic Assessment and Plan: -----Patient is NPO with NGT. Last bp 117/59. Hold amlodipine, chlorthalidone, metoprolol due to NPO status. Continue PRN hydralazine with parameters (3) Magnesium deficiency: Code(s): E61.2 - Magnesium deficiency Status: Acute Assessment and Plan: -----Improved (4) Deep vein thrombosis (DVT) of left upper extremity: Code(s): I82.622 - Acute embolism and thrombosis of deep veins of left upper extremity Status: Chronic Assessment and Plan: ------Thrombosis associated from PICC line from LUE in 02/2019. She was to have repeat US in july. Repeat ultrasound of the left upper arm today. 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 (6) Hyperlipidemia: Code(s): E78.5 - Hyperlipidemia, unspecified Status: Chronic Assessment and Plan: -------Hold atorvastatin while NPO (7) Abnormal computed tomography angiography (CTA) of abdomen and pelvis: Code(s): R93.5 - Abnormal findings on diagnostic imaging of other abdominal regions, including retroperitoneum Status: Acute Assessment and Plan: -----will need follow-up once this acute illness has improved. Spoke with the radiologist and surgeon about potential biopsy sites but since the patient did not tolerate the Gastrografin test, will hold off on this workup. I will draw his CA-125 and give her referrals. Subjective Date/time seen: 06/22/19 16:27 Interval history: Pt is a 69 yo here for SBO w/ a history of cervical cancer. The patient was seen today and states that she has not had a ton of improvement. She has been passing some gas but she still has intermittent abdominal pain. She has not had any nausea but just started her small-bowel study. She states that her oncologist does not practice anymore and that she has not seen another oncologist since. We talked about the CT abnormalities and what they could be. I asked if she would like to see 1 of our oncologists after this acute illness has improved and she said she will think on it. She has not had a bowel movement. Pt denies nausea, vomiting, fevers, chills, chest pain, or shortness of breath Exam Narrative: Exam Narrative: General: Well developed well nourished patient resting in bed in NAD HEENT: normocephalic, NG intact Neck: supple Neuro: Alert and oriented x 4 CV:RRR with 2/6 systolic murmur best heard on the right ICS Resp:CTA, some occasional expiratory wheeze Abd: Soft, non distended. Some mild pain to the lower abdomen. Positive bowel sounds again today Extremities: No swelling, erythema, or pain to palpation. Objective Data Vital Signs Vital Signs: Vital Signs - 24 hr 06/21/19 22:00 06/22/19 06:00 06/22/19 09:37 Temperature 98.6 F 97.9 F 98.6 F Pulse Rate 85 89 82 Respiratory Rate 16 16 14 B
[2019-06-22 18:54] LABS: Glucose Point of Care 136 (65-105)
[2019-06-22 22:00] VITALS: BP 131/73; PULSE 83; RESP 14; TEMP 36.7; O2SAT 94
[2019-06-22 22:04] LABS: Triglycerides 126 mg/dL (<150)
[2019-06-22 23:34] LABS: Glucose Point of Care 126 (65-105)
[2019-06-23] MEDS: ONDANSETRON INJ 4 MG/2 ML VIAL IV PUSH ×3 (02:33→16:09)
[2019-06-23] MEDS: HYDROMORPHONE HCL 1 MG/ML INJ 0.5 MG IV PUSH ×5 (02:59→18:06)
[2019-06-23 05:33] LABS: Glucose Point of Care 154 (65-105)
[2019-06-23 05:38] LABS: Basophils Percent Auto 0.2 % (0.2-1.2); Eosinophils Percent Auto 0.6 % (0-4.4); Hematocrit 38.3 % (37.0-47.0); Hemoglobin 12.4 g/dL (12.0-15.0); Immature Granulocyte Absolute 0.04 K/mm3 (0.00-0.031); Immature Granulocyte Percent A 0.6 % (0-0.5); Lymphocytes Absolute Auto 0.52 K/mm3 (0.9-3.2); Lymphocytes Percent Auto 7.9 % (18.3-44.2); Mean Corpuscular HGB Conc 32.4 g/dl (32-36); Mean Corpuscular Hemoglobin 29.7 pg (26-34); Mean Corpuscular Volume 91.6 fl (80-100); Mean Platelet Volume 9.9 fl (7.4-10.4); Monocytes Absolute Auto 0.7 K/mm3 (0.1-0.6); Neutrophils Absolute Auto 5.3 K/mm3 (1.3-6.7); Neutrophils Percent Auto 80.7 % (45.5-73.1); Platelet Count Result 229 k/mm3 (150-375); Red Blood Count 4.18 M/mm3 (4.2-5.4); Red Cell Distribution Width 12.8 % (11.5-14.5); White Blood Count 6.6 K/mm3 (4.5-10.0)
[2019-06-23 05:42] LABS: Alanine Aminotransferase 18 U/L (4-35); Albumin Level 3.1 g/dL (3.5-5.1); Alkaline Phosphatase 101 U/L (38-126); Aspartate Amino Transferase 28 U/L (14-36); Bilirubin,Total 0.4 mg/dL (0.2-1.3); Blood Urea Nitrogen 34 mg/dL (7-17); Calcium 8.5 mg/dL (8.4-10.2); Carbon Dioxide 29 mmol/L (22-30); Chloride 94 mmol/L (98-107); Estimated CRCL calculation 46 ml/min; Estimated Glomerular Filt Rate > 60; Glucose 134 mg/dL (65-105); Magnesium 1.9 mg/dL (1.6-2.3); Phosphorus 3.6 mg/dL (2.5-4.5); Potassium 3.8 mmol/L (3.4-5.0); Sodium 133 mmol/L (137-145)
[2019-06-23 06:00] VITALS: BP 135/72; PULSE 86; RESP 16; TEMP 36.3; O2SAT 95
[2019-06-23] MEDS: PANTOPRAZOLE SODIUM IV 40 MG VIAL IV PUSH (08:21)
[2019-06-23] MEDS: ENOXAPARIN 60 MG/0.6 ML SYRINGE SUB-Q (08:21)
[2019-06-23] MEDS: FAT EMULSIONS IV 20% 250 ML 20.8 ML IVPB (12:22)
[2019-06-23 13:26] LABS: Glucose Point of Care 114 (65-105)
[2019-06-23 14:00] VITALS: BP 119/68; PULSE 82; RESP 18; TEMP 36.6; O2SAT 97
--- NOTE | 2019-06-23 15:49 | PM.PNGS ---
Progress Note: A&P Assessment and Plan (1) SBO (small bowel obstruction): Code(s): K56.609 - Unspecified intestinal obstruction, unspecified as to partial versus complete obstruction Status: Acute Assessment and Plan: I discussed patient with a surgeon at [place], Dr.Zachary Block. He is with the acute care surgical team and agrees to accept the patient in transfer. We will copy her records here including discs of her imaging and transfer there when bed available. This will hopefully be later today. (2) History of radiation therapy: Code(s): Z92.3 - Personal history of irradiation Status: Acute (3) Anticoagulant prescribed: Status: Acute Subjective Subjective Date/Time Seen: 06/23/19 15:49 Still having crampy pain. No bowel movement after Gastrografin upper GI small-bowel follow-through. We discussed possibly transferring the patient to [facility] yesterday. She wanted to think about this overnight. She today wishes to be transferred. Review of Systems Review of Systems: All systems reviewed & are unremarkable except as noted in HPI and below Constitutional: Constitutional: Denies headache(s) ENT: Denies headache(s) Cardiovascular: Cardiovascular: Denies chest pain and Denies dyspnea Respiratory: Respiratory: Denies cough and Denies dyspnea Gastrointestinal: Gastrointestinal: Reports as per HPI Neurologic: Denies confusion and Denies headache(s) Psychiatric: Psychiatric: Denies confusion Exam Const: General: comfortable and no acute distress; No confusion Orientation/consciousness: patient oriented x3 and No confusion GI: Inspection: non-distended and no obesity GI Palp: Yes Firmness to palpation present (GI) (Lower abdomen, pelvis), Yes Tenderness to palpation present (GI) (Mild), No Guarding due to palpation present (GI) and No Rebound tenderness present Auscultation: normal bowel sounds Neuro: General: patient oriented x3, no focal motor deficits and No confusion Extrem: General: no calf tenderness and no edema Psych: Affect: normal affect Insight: Good insight present (Psych) Judgement: Good judgement present (Psych) Objective Data Vital Signs Vital Signs: Vital Signs - 24 hr 06/22/19 22:00 06/23/19 06:00 06/23/19 14:00 Temperature 36.7 C 36.3 C L 36.6 C Pulse Rate 83 86 82 Respiratory Rate 14 16 18 Blood Pressure 131/73 135/72 119/68 Pulse Oximetry 94 95 97 Intake/Output Intake/Output: Intake & Output 06/20/19 06/21/19 06/22/19 06/23/19 23:59 23:59 23:59 23:59 Intake Total 2250 2611 3304 2285 Output Total 1450 1850 2050 250 Balance 050 101 1723 2035 Meds/Results Medications: Active Medications Generic Name Dose Route Start Last Admin Trade Name Freq PRN Reason Stop Dose Admin Enoxaparin Sodium 60 mg 06/20/19 09:00 06/23/19 08:21 Lovenox SUB-Q 60 mg Q12HR SARAH Administration Hydralazine HCl 10 mg 06/19/19 20:25 Apresoline Hcl Inj IV PUSH Q8H PRN Blood Pressure - High Hydromorphone HCl 0.5 mg 06/19/19 20:41 06/23/19 13:57 Dilaudid Inj IV PUSH 0.5 mg Q3H PRN Administration Pain Rated 7-10 Dextrose 1,000 mls @ 50 mls/hr 06/19/19 20:40 Dextrose 10% IV CONT .Q20H PRN if PN is interrupted Fat Emulsion Intravenous 250 mls @ 20.833 mls/hr 06/20/19 12:00 06/23/19 12:22 Lipids 20% IVPB 20.8 mls/hr Q24H SARAH Administration Piperacillin/Tazobactam/Dextrose 3.375 gm in 50 mls @ 100 mls/hr 06/21/19 07:00 06/23/19 13:02 Zosyn 3.375 Gm/D5w 50ml Pm IVPB Infused Q6HR SARAH Infusion Multivitamins 5 ml/ Amino 2,005 mls @ 60 mls/hr 06/21/19 11:30 06/23/19 12:22 Acids/Electrolytes/Dextrose IV CONT 60 mls/hr .Q24H SARAH Administration Protocol Lidocaine/Prilocaine 1 each 06/21/19 23:33 06/22/19 21:07 Emla/Tegaderm TOPICAL 06/26/19 23:34 1 each PRN PRN Administration Pain Ondansetron HCl 4 mg 06/19/19 20:22 06/23/19 08:18 Zofran
--- NOTE | 2019-06-23 16:11 | PM.TDS ---
Transfer Discharge Sum: Prov Provider Date of admission: 06/19/19 18:02 Primary care physician: Nupur Burns, MD Admitting clinician: Sylvester Song MD Consults: 06/19/19 Consult to Physician Routine Comment: Consulting Provider: Lam Lim animal trainer supervisor/MD group to consult: dr lim Reason for consultation: sbo Has provider been notified: Yes Consult to Physician Routine Comment: Dr Lim aware of consult (,[place]) Consulting Provider: Lam Lim animal trainer supervisor/MD group to consult: Dr. Lim Reason for consultation: recurrent SBO Has provider been notified: Yes 06/19/19 20:40 Consult to Dietitian Routine Reason for Consult:: TPN Attending physician on discharge: Remigio Sharma Discharging clinician: Iraida Matthews Anticipated date of transfer: 06/23/19 Receiving physician/facility: Dr. danielle Pabon DS: Diagnosis Admitting Diagnosis Admitting Diagnosis: Unspecified intestinal obstruction, unspecified as to partial versus complete obstruction Discharge Diagnosis (1) SBO (small bowel obstruction): Code(s): K56.609 - Unspecified intestinal obstruction, unspecified as to partial versus complete obstruction Status: Acute Assessment and Plan: ------Patient has increased pain today. Xray still showing bowel obstruction. I spoke with Dr. lim who believes she is high risk and is transfering her to [facility] under Dr. danielle pabon MD. Last echo done by her pcp nupur burns and patient reports no significant abnormalities and has no symptoms of . (2) HTN (hypertension) with goal to be determined: Code(s): I10 - Essential (primary) hypertension Status: Chronic Assessment and Plan: -----Patient is NPO with NGT. Last bp 119/68. Hold amlodipine, chlorthalidone, metoprolol due to NPO status. Continue PRN hydralazine with parameters (3) Magnesium deficiency: Code(s): E61.2 - Magnesium deficiency Status: Acute Assessment and Plan: -----Improved (4) Deep vein thrombosis (DVT) of left upper extremity: Code(s): I82.622 - Acute embolism and thrombosis of deep veins of left upper extremity Status: Chronic Assessment and Plan: ------Thrombosis associated from PICC line from LUE in 02/2019. She was to have repeat US in july. Repeat ultrasound of the left upper arm today. 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 (6) Hyperlipidemia: Code(s): E78.5 - Hyperlipidemia, unspecified Status: Chronic Assessment and Plan: -------Hold atorvastatin while NPO (7) Abnormal computed tomography angiography (CTA) of abdomen and pelvis: Code(s): R93.5 - Abnormal findings on diagnostic imaging of other abdominal regions, including retroperitoneum Status: Acute Assessment and Plan: -----will need follow-up once this acute illness has improved. Spoke with the radiologist and surgeon about potential biopsy sites. When she gets to [place] they can decide if there is any areas to bx while in sx. CA-125 pending. (8) Right lower quadrant abscess: Code(s): K65.1 - Peritoneal abscess Status: Acute Assessment and Plan: -----receiving zosyn. Not a good candidate for percutaneous drainage given size and location. Should be followed up when she gets to [place]. They have been sent the images and reports. Transfer Discharge Sum: Med Medications Active and Home Medications: Home Medications alendronate 70 mg tablet 70 mg PO WEEKLY 03/08/19 [History Confirmed 06/19/19] amlodipine 5 mg tablet 5 mg PO DAILY 03/08/19 [Hist
[2019-06-26 04:49] LABS: CA-125 59 U/mL (<35)
--- NOTE | 2019-06-28 11:00 | PC.NURSE ---
Blood cx is negative. CA-!@% is elevated at 59. Patient was transferred to higher level of care. JOAO Mark aware.
== END 2019-06-23 19:20 | disposition short-term general hospital (02) | DRG 389 ==
PROVIDERS: Nurse Practitioner; Physician Assistant; Surgery; Admitting Provider Internal Medicine; PCP Family Medicine; Visit Provider Internal Medicine
DX: K56.699 Other intestinal obstruction unspecified as to partial versus complete obstruction (principal); I82.712 Chronic embolism and thrombosis of superficial veins of left upper extremity; E87.1 Hypo-osmolality and hyponatremia; T80.1XXA Vascular complications following infusion, transfusion and therapeutic injection, initial encounter; I82.891 Chronic embolism and thrombosis of other specified veins; Y84.2 Radiological procedure and radiotherapy as the cause of abnormal reaction of the patient, or of later complication, without mention of misadventure at the time of the procedure; T80 Complications following infusion, transfusion and therapeutic injection; E61.2 Magnesium deficiency; I10 Essential (primary) hypertension; G63 Polyneuropathy in diseases classified elsewhere; E78.5 Hyperlipidemia, unspecified; Z85.41 Personal history of malignant neoplasm of cervix uteri; Z92.21 Personal history of antineoplastic chemotherapy; Z92.3 Personal history of irradiation; F17.210 Nicotine dependence, cigarettes, uncomplicated; N73.9 Female pelvic inflammatory disease, unspecified
CPT/HCPCS: 36415; 71045; 74018; 74177; 74240; 74248; 80048; 80053; 83735; 84100; 84300; 84443; 84466; 84478; 85025; 85027; 85610; 85730; 86304; 87040; 93971; C9113; J0131; J1170; J1650; J2405; J2543; J7030; Q9967